=== PATIENT | female | born 1975 | race African-American/Black ===

== ENCOUNTER 2019-10-18 08:09 | Day surgery (SDC) | payer MEDICAID, SELFPAY ==
[~2019-10-18] VITALS: Ht 157.5 cm; Wt 53.1 kg
[2019-10-18 09:06] LABS: HCG,QUAL RESULT NEGATIVE (NEGATIVE)
[2019-10-18 09:12] LABS: ALBUMIN 3.3 g/dL (3.4-4.8); CALCIUM 9.1 mg/dL (8.4-11.0); CREATININE 0.36 mg/dL (0.55-1.30); POTASSIUM 3.1 mmol/L (3.5-5.1); TOTAL BILIRUBIN 0.5 mg/dL (0.0-1.0)
[2019-10-18 09:17] LABS: BASOPHILS % (AUTO) 0.4 % (0.0-2.0); EOSINOPHILS # (AUTO) 0.1 K/uL (0.0-0.4); EOSINOPHILS % (AUTO) 2.2 % (0.0-4.0); HEMATOCRIT 41.9 % (36-48); HEMOGLOBIN 13.4 g/dL (12.0-16.0); LYMPHOCYTES # (AUTO) 1.2 K/uL (1.0-5.5); LYMPHOCYTES % (AUTO) 24.3 % (20.5-51.5); MEAN CORPUSCULAR HEMOGLOBIN 28 pg (27-31); MEAN CORPUSCULAR HGB CONC 32 % (32-36); MEAN CORPUSCULAR VOLUME 89 fL (79.0-98.0); MONOCYTES # (AUTO) 0.3 K/uL (0.0-1.0); MONOCYTES % (AUTO) 5.8 % (1.7-9.3); NEUTROPHILS # (AUTO) 3.2 K/uL (1.8-7.7); NEUTROPHILS % (AUTO) 67.3 % (40.0-70.0); PLATELET COUNT (AUTO) 226 K/uL (130-430); RED BLOOD CELL COUNT(AUTO) 4.72 MIL/uL (4.2-6.2); RED CELL DISTRIBUTION WIDTH 14.9 % (9.0-15.0); WHITE BLOOD COUNT (AUTO) 4.8 K/uL (4.8-10.8)
[2019-10-18] MEDS ORDERED: HYDROmorphone 1 MG INJ. 1 MG/ML AMPUL IVP PRN (10:15)
[2019-10-18] MEDS ORDERED: NS 1000 ML IV.SOLN IV ONE (10:18)
[2019-10-18] MEDS ORDERED: ONDANSETRON HCL 4 MG/2 ML VIAL ONE (10:18)
[2019-10-18] MEDS ORDERED: KETOROLAC TROMETHAMINE 30 MG VIAL ONE (10:18)
[2019-10-18] MEDS ORDERED: fentaNYL CITRATE/PF 100 MCG/2 ML AMP ONE (10:18)
[2019-10-18] MEDS ORDERED: PROPOFOL 200MG/ 20ML VIAL (DIPRIVAN) IV ONE (10:18)
[2019-10-18] MEDS ORDERED: DESFLURANE 15 MIN GAS INH ONE (10:18)
[2019-10-18] MEDS ORDERED: LR 1,000 ML IV.SOLN IV ONE (10:18)
[2019-10-18] MEDS ORDERED: DEXAMETHASONE SOD PHOSPHATE 4 MG/ML VIAL ONE (10:18)
[2019-10-18 11:11] VITALS: BP_SYST 132
== END 2019-10-18 11:15 | disposition home or self-care (01) ==
LOC: SDS 08:09 → SMU 08:10 → EDSTATUS 09:30 → SDS 11:15
PROVIDERS: ATTEND Obstetrics & Gynecology
DX: N92.0 Excessive and frequent menstruation with regular cycle (principal); D25.1 Intramural leiomyoma of uterus; E11.9 Type 2 diabetes mellitus without complications; Z79.899 Other long term (current) drug therapy; Z11.59 Encounter for screening for other viral diseases
CPT/HCPCS: 36415; 58563; 80053; 84703; 85025; 86886; 86900; 86901; J1100; J1885; J2405; J2704; J3010; J7030; J7120; U0003

== ENCOUNTER 2020-06-13 14:07 | Outpatient (CLI) | payer MEDICAID, SELFPAY | END 2020-06-13 16:00 | disposition home or self-care (01) | LOC: SLB 14:07 → EDSTATUS 06-18 12:05 | PROVIDERS: ATTEND Obstetrics & Gynecology | DX: Z20.822 Contact with and (suspected) exposure to COVID-19 (principal); N92.0 Excessive and frequent menstruation with regular cycle; D25.1 Intramural leiomyoma of uterus | CPT/HCPCS: U0003 ==